=== PATIENT | male | born 1960 ===

== ENCOUNTER 2017-12-04 10:14 | Outpatient (CLI) | payer BC ==
[2017-12-04] MEDS ORDERED: Iopamidol 370 76% 100 ML VIAL ONE (16:37)
== END 2017-12-04 10:15 | disposition home or self-care (01) ==
LOC: BICCT 10:14
PROVIDERS: ATTEND Urology
DX: C64.1 Malignant neoplasm of right kidney, except renal pelvis (principal)
CPT/HCPCS: 74170

== ENCOUNTER 2019-10-31 10:30 | Outpatient (CLI) | payer BC ==
--- NOTE | 2019-10-31 13:07 | RAD ---
PA AND LATERAL VIEWS CHEST: Date: 10/31/2019 HISTORY: Renal cell carcinoma. Status post right nephrectomy 1 year ago. FINDINGS: There are no previous exams for comparison. The heart size is borderline. The lungs are expanded without lobar consolidation, pneumothoraces, mas ses, or pleural effusions. There are mild degenerative changes in the spine. IMPRESSION: No radiographic evidence of acute cardiopulmonary process. POS: [facility]
== END 2019-10-31 10:31 | disposition home or self-care (01) ==
LOC: BICRAD 10:30
PROVIDERS: ATTEND Urology
DX: C64.9 Malignant neoplasm of unspecified kidney, except renal pelvis (principal)
CPT/HCPCS: 36415; 71046; 80053